=== PATIENT | male | born 1950 | race Caucasian/White ===

== ENCOUNTER 2017-02-01 16:59 | Emergency (ER) | payer OTHER, BC ==
[~2017-02-01] VITALS: Ht 185.4 cm; Wt 132.0 kg
[~2017-02-01 16:59] MED LIST: ASPI81TA28 PO; DICL-201 PO; DICL1GEL28 TOP; DOXY50CA26 PO; EPP3 IM; FLUO0.05 TOP; GABA600T PO; METR1GEL3 TOP; OXYC-106 PO; RANITAB33 PO; SIMV10TA5 PO
[2017-02-01 17:08] VITALS: TEMP 36.7; Ht 185.4 cm; Wt 132.0 kg
--- NOTE | 2017-02-01 17:56 | DIAGNOSTIC IMAGING REPORT ---
L HAND MIN 3 VIEWS ROUTINE CLINICAL HISTORY: Left hand injury. COMPARISON: None FINDINGS: Alignment of the left hand is anatomic. No acute fracture or radiopaque foreign bodies are identified. There may be mild soft tissue swelling of the left second digit. There is moderate osteoarthritis within multiple articulations of the left hand. IMPRESSION: No acute fracture or dislocation within the left hand. No radiopaque foreign bodies identified. Electronically signed by: Ton Garay M.D. 02/01/2017 5:55 PM Dictated Date/Time: 02/01/2017 5:53 PM
[2017-02-01] MEDS ORDERED: OXYC-57 PO (18:06)
[2017-02-01] MEDS ORDERED: CEPH500C2 PO (18:06)
[2017-02-01] MEDS ORDERED: ATOR-22 PO (18:16)
[2017-02-01] MEDS ORDERED: EPP3/2 IM (18:18)
[2017-02-01 18:30] VITALS: BP 146/88; PULSE 78; O2SAT 99
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
== END 2017-02-01 18:31 | disposition home or self-care (01) ==
LOC: C.EDB 17:01 → C.EDD 18:31
DX: S61.211A Laceration without foreign body of left index finger without damage to nail, initial encounter (principal); W32.1XXA Accidental handgun malfunction, initial encounter; Z79.52 Long term (current) use of systemic steroids; Z79.1 Long term (current) use of non-steroidal anti-inflammatories (NSAID); Z79.82 Long term (current) use of aspirin; F10.99 Alcohol use, unspecified with unspecified alcohol-induced disorder

== ENCOUNTER → 2017-02-08 | Outpatient (CLI) | payer OTHER, BC ==
[~2017-02-08] MED LIST changes: +CEPH500C2 PO; -DOXY50CA26 PO; -EPP3 IM; +EPP3/2 IM; -METR1GEL3 TOP; -OXYC-106 PO; +OXYC-57 PO; -RANITAB33 PO; -SIMV10TA5 PO
== END | disposition home or self-care (01) ==
LOC: C.RDSM 13:00
PROVIDERS: ATTEND Physical Medicine & Rehabilitation Sports Medicine
DX: M17.12 Unilateral primary osteoarthritis, left knee (principal)

== ENCOUNTER → 2017-04-14 | Outpatient (CLI) | payer OTHER, BC ==
[~2017-04-14] MED LIST changes: -CEPH500C2 PO
== END | disposition home or self-care (01) ==
LOC: C.CPL 14:59
PROVIDERS: ATTEND Orthopaedic Surgery
DX: Z01.818 Encounter for other preprocedural examination (principal); M79.642 Pain in left hand

== ENCOUNTER 2022-06-02 05:07 | Observation (INO) ==
--- NOTE | 2022-05-26 12:31 | Anesthesiology Consultation ---
Date of Service May 26, 2022 Assessment & Plan (1) Encounter for pre-operative examination: Chart Review Chart Review: Acceptable Risk for Surgery and Patient seen in Pre Admission Testing -COVID screening: Per PAT nursing assessment on 05/26/22. Pt tested Covid positive 05/05/22 preoperatively prior to TKA procedure. Pt's procedure was rescheduled to 06/02/22 (28 days from Covid positive test). No known COVID-19 positive contacts or current COVID-19 related symptoms. Travel screen negative. Patient vaccinated for Covid. Pt will NOT need re-tested for Covid (even if admitted) due to 90 day protocol - Outpatient joint assessment: Pt currently scheduled for inpatient pathway. If surgeon requests review for outpatient joint pathway, patient is an acceptable candidate for outpatient joint program from anesthesia standpoint. - PCP office visit (04/15/22): "Patient is at low risk For perioperative cardiac event and may undergo the proposed surgery under noninvasive cardiac monitoring .. Rash and nonspecific skin eruption.. 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 continue bexarotene 300 mg daily.. triamcinolone .1% cream BID prn flares on skin surface - tx axillary flare until improved. plans for knee surgery (TKA) in a couple of weeks.. Follow-up: 6 mo (sooner if changes or problems) " - Cardiology office visit (04/22/22): "Preoperative cardiology consultation. + ALCANTAR. Limited functional capacity. Atherosclerotic calcifications involving the aorta and coronary arteries via CT scan dated 04/27/2017. Multiple risk factors. Refer for risk stratification dobutamine stress echocardiography.. Dyslipidemia. LDL goal less than 100 mg/dL. Hypertriglyceridemia.. Patient with documented intolerance to simvastatin, atorvastatin, rosuvastatin, and ezetimibe.. On Bexarotene, which is known to induce significant lipid abnormalities in a majority of patients.. Continue PCSK9 Inhibitor therapy and OTC fish oils.. Cardiology follow-up with the above, routinely in 6 months, or as needed." Cardiology note (05/04/22): DSE reviewed > "no cardiac contraindication for upcoming orthopedic surgery." History Surgery Operation Date: 06/02/22 07:00 Proposed Procedures p Left Total Knee Arthroplasty - Kirk Chau MD Height/Weight Height: 6 ft Weight: 122.47 kg Allergies Allergy/AdvReac Type Severity Reaction Status Date / Time bee venom protein (honey bee) Allergy Severe anaphlaxis Verified 05/26/22 12:01 shellfish derived Allergy Intermediate Hives Verified 05/26/22 12:01 No Known Drug Allergies Allergy Unknown NONE Verified 05/26/22 12:01 Medications Home Medications Medication Instructions Recorded Confirmed Last Taken aspirin 81 mg tablet,delayed 81 mg PO QPM 02/24/19 05/26/22 05/03/22 release cholecalciferol (vitamin D3) 25 1,000 unit PO QAM 02/24/19 05/26/22 05/04/22 10:00 mcg (1,000 unit) chewable tablet (Vitamin D3) diclofenac sodium 75 mg 75 mg PO BID 02/24/19 05/26/22 04/26/22 tablet,delayed release gabapentin 600 mg tablet 600 mg PO BID 02/24/19 05/26/22 05/05/22 07:00 bexarotene 75 mg capsule 300 mg PO DAILY 04/21/22 05/26/22 05/04/22 10:00 (Targretin) citalopram 10 mg tablet (Celexa) 10 mg PO QAM 04/21/22 05/26/22 05/05/22 07:00 evolocumab 140 mg/mL subcutaneous 140 mg subcut MONTHLY 04/21/22 05/26/22 04/30/22 pen injector (Devi Jones) levothyroxine 100 mcg tablet 100 mcg PO QAM 04/21/22 05/26/22 05/05/22 06:45 lorazepam 1 mg tablet 1 mg PO HS 04/21/22 05/26/22 05/04/22 23:30 Probiotic 1 tab PO DAILY 04/24/22 05/26/22 05/01/22 Vitamin C 1 tab PO DAILY 04/24/22 05/26/22 05/04/22 09:30 acetaminophen 1 tab PO DIRECTED 04/24/22 05/26/22 05/04/22 09:00 epinephrine 0.3 mg/0.3 mL 0.3 mg IM Q4H PRN Allergic Reaction 04/24/22 05/26/22 Unknown injection, auto-injector (EpiPen) omega-3 fatty acids 1 cap PO DAILY 04/24/22 05/26/22 04/26/22 omeprazole 20 mg tablet,delayed 20 mg PO DAILY 04/24/22 05/26/22 05/05/22 07:00 release Past Medical History Medical History GERD (gastroesophageal reflux disease) History of COVID-19 05/05/22 (tested Covid positive preoperatively while at [facility] prior to TKA- TKA was rescheduled to 06/02/22) Hodgkin lymphoma Hyperlipidemia 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 No issues noted per post-op anesthesia progress note. History of left knee surgery x 2 History of lumbar laminectomy x2 History of lymph node biopsy groin 02/28/19 History of removal of cyst History of tonsillectomy History of wisdom tooth extraction Social History Smoking Status: Former smoker tobacco type: smokeless tobacco Do You Dip or Chew Tobacco: Yes (advised) Smoking End Date: quit 4.5 years ago Hx Alcohol Use: Yes Alcohol type: beer and wine alcohol intake frequency: a few times a month Hx Substance Use: No substance use type: does not use Lab Results Anesthesia Preop Results Results Anesthesia Widget: PT 10.9 Seconds (9.0-12.0) 04/24/22 PTT 27.9 Seconds (21.0-31.0) 04/24/22 INR 1.0 (0.9-1.1) 04/24/22 COVID-19 PCR POSITIVE (Negative) A* 05/05/22 SARS-CoV-2, RNA, NAAT POSITIVE (NEGATIVE) A* 05/05/22 Blood Type O Positive 04/24/22 Antibody Screen NEGATIVE 04/24/22 Testing Laboratory Results 04/16/22 WBC 6.25 H/H 15.8/48.5 PLATELETS 207 SODIUM 140 POTASSIUM 5.0 CHLORIDE 100 CO2 31 BUN 21 CREATININE 0.9 GLUCOSE 111 A1C 5.7 TSH 0.54 Electrocardiogram Date: 04/22/22 Normal sinus rhythm at 62 bpm. RAD. No significant change compared to 11/03/2021 per microfilm equipment inspector review. Chest X-Ray Date: 04/24/22 FINDINGS: PA and lateral chest radiographs are obtained. No prior studies are available for comparison at the time of dictation. The heart is mildly enlarged. The pulmonary vasculature is noncongested. The lungs and pleural spaces are clear noting mild bibasilar atelectasis. There is no pneumothorax. The skeletal structures are osteopenic. The bony thorax appears intact. Degenerative change is seen in the shoulders and spine. Cholecystectomy clips are noted in the upper abdomen. IMPRESSION: Mild cardiomegaly with no active disease in the chest. Echocardiogram Date: 05/10/20 LVEF 53%. No regional motion abnormality. No significant valvular disease. Stress Test Date: 05/04/22 Type: DSE Stress echo negative for inducible ischemia. No symptoms suggestive of angina. Rest echo: LVEF 55-59%, mildly increased cLV wall thickness, no significant valvular disease. Mildly enlarged proximal ascending thoracic aorta (3.8cm).
[2022-06-02] MEDS ORDERED: TRANEXAMIC ACID 1,000 MG **IV Intra-op IV SCH (06:00)
[2022-06-02] MEDS ORDERED: TRANEXAMIC ACID 1,000 MG **IV Pre-op IV SCH (06:00)
[2022-06-02] MEDS ORDERED: cloNIDine HCL 0.1 MG/24 HR TRANSDERM SYS TD SCH (06:00)
[2022-06-02] MEDS ORDERED: METOCLOPRAMIDE HCL 10 MG TABLET PO SCH (06:00)
[2022-06-02] MEDS ORDERED: LR 500ML BOLUS, THEN 15ML/HR IV SCH (06:00)
[2022-06-02] MEDS ORDERED: traMADol HCL 50 MG TABLET PO SCH (06:00)
[2022-06-02] MEDS ORDERED: oxyCODONE HCL 10 MG TABCR (OxyCONTIN) PO SCH (06:00)
[2022-06-02] MEDS ORDERED: ROPIVACAINE 0.5% HCL/PF 150 MG, BUPIVACAINE 0.75% MPF 20 ML, EPINEPHrine 0.15 MG, Ketor... INFIL SCH (06:00)
[2022-06-02] MEDS ORDERED: dexAMETHasone 4 MG TAB PO SCH (06:00)
[2022-06-02] MEDS ORDERED: CeleBREX 200 MG CAP PO SCH (06:00)
[2022-06-02] MEDS ORDERED: ACETAMINOPHEN 500 MG TAB PO SCH (06:00)
[2022-06-02] MEDS ORDERED: FAMOTIDINE 20 MG TAB PO SCH (06:00)
[2022-06-02] MEDS ORDERED: LR 60ML/HR IV SCH (06:00)
[2022-06-02] MEDS ORDERED: BUPIVACAINE 0.5 % 5 MG/1 ML PF 10ML VIAL ONE (06:18)
[2022-06-02] MEDS ORDERED: ROPIVACAINE 0.5% 5 MG/ML 30 ML VIAL ONE (06:19)
[2022-06-02] MEDS ORDERED: ORTHO JOINT ANESTHETIC ONE (06:41)
[2022-06-02] MEDS ORDERED: MIDAZOLAM HCL 1 MG/ML 2ML VIAL ONE ×2 (06:44→09:11)
[2022-06-02] MEDS ORDERED: fentaNYL citrate PF 100 MCG/2 ML VIAL ONE (06:44)
--- NOTE | 2022-06-02 06:54 | History & Physical Bridge Note ---
Date of Service June 02, 2022 History & Physical Bridge Note I have examined the patient, reviewed the History & Physical and in the interval since the performance of the History & Physical I have noted the following changes of clinical significance: no changes noted dried skin top of left foot and popliteal fossa, slightly irritated from CHG wipe.
[2022-06-02] MEDS ORDERED: PROPOFOL IV EMULSION 10 MG/ML 20 ML VIAL IV ONE ×6 (07:25→10:24)
[2022-06-02] MEDS ORDERED: PHENYLEPHRINE HCL 10 MG/ML VIAL ONE (07:40)
[2022-06-02] MEDS ORDERED: ePHEDrine sulfate 50 MG/ML AMP ONE (07:40)
[2022-06-02] MEDS ORDERED: HYDROmorphone INJ 2 MG/ML SYR/VIAL IV PRN (08:11)
[2022-06-02] MEDS ORDERED: ePHEDrine sulfate 50 MG/ML AMP IV PRN (08:11)
[2022-06-02] MEDS ORDERED: ATROPINE SULFATE 0.1 MG/ML 10ML SYR IV PRN (08:11)
[2022-06-02] MEDS ORDERED: ONDANSETRON INJ 2 MG/ML 2 ML VIAL IV PRN (08:11)
[2022-06-02] MEDS ORDERED: PROMETHAZINE HCL 12.5 MG in SODIUM CHLORIDE 0.9% 50 ML IV PRN (08:11)
[2022-06-02] MEDS ORDERED: KETAMINE 50 MG/5 ML SYRINGE ONE (08:31)
[2022-06-02] MEDS ORDERED: ONDANSETRON INJ 2 MG/ML 2 ML VIAL ONE (08:32)
--- NOTE | 2022-06-02 11:39 | Operative Report ---
Post Operative Report Pre & Post Diagnosis Operation Date: 06/02/22 07:00 <No data on this case meets the specified criteria> Left knee arthritis I identified the patient and participated in the time-out.: Yes Procedure Operation Date: 06/02/22 07:00 <No data on this case meets the specified criteria> Left total knee arthroplasty Surgeon Kirk Chau MD Business Information Consultant Karen Brewer no resident or fellow available Estimated Blood Loss 50 Findings Consistent with Post-Op Diagnosis Specimens Resected bone and soft tissue Drains Hemovac x1 in the subcutaneous tissue Anesthesia Type General Regional Complications none Disposition Accompanied Patient To Recovery: No Disposition: Recovery Room Indications Patient is 71 years old. He has a severe posttraumatic osteoarthritis of his left knee. He has had multiple previous surgical procedures. He has a severe varus deformity with multiple loose bodies and bone loss on the tibia. He has undergone extensive nonsurgical treatment and wishes to have operative intervention. Description of Procedure Informed consent obtained. Patient identified. He identified the operative site as the left knee. Before surgery was made aware of skin irritation on the back of the leg. It looks like he has an area of dried skin about 6 or 8 cm wide and about 15 to 20 cm long extending from the popliteal fossa up onto the back of the calf. There is no break in the skin or bleeding and there is nothing to suggest infection. The patient states that he would not of noticed it except that he had some burning back there when he did the chlorhexidine wipe before surgery. This looks like some minorly irritated and dried skin. He has similar findings on the contralateral leg. He also has some dried skin on the top of his feet. Again nothing infectious or cracked or bleeding. Surgical timeout performed. Preop dose of antibiotics given. He received TXA also. He was taken to the OR positioned supine on the operating room table. The anesthetic was administered. A bump was placed under the left hip and under the left calf. A tourniquet was applied to the left thigh and the leg was prepped and draped in usual sterile fashion. DVT prophylaxis intraoperatively with mechanical devices and postop early mobility mechanical devices and Lovenox beginning approximately 12 hours postoperatively. The exam under anesthesia revealed range of motion 0/5/100. He had a fixed varus deformity moderate in nature and 1+ LCL laxity. There was a loose body within the popliteal cyst which could be palpated posteromedially. Limb exsanguinated with the Esmarch and tourniquet inflated 275 mmHg. He had 2 previous medial incisions. 1 was posteromedial and the other 1 was mid medial. This mid medial incision was about 12 cm in length. To stay 7 cm lateral to this at its distal extent where it nearly came back to the midline would mean a very far lateral incision. I elected to proceed with using the most lateral of the medial incisions and extending it in a curvilinear fashion back to the midline proximally and distally. This was done. Full-thickness flap was elevated laterally over to the lateral border of the patella. The medial border of the patellar tendon was identified. Extensive scarring was noted medially because of prior surgery. A medial parapatellar arthrotomy was then performed. The synovial reflection in the lateral gutter was released and the soft tissue on the anterior aspect of the distal femur was resected. There was white chalky material noted throughout the knee consistent with chondrocalcinosis. This was debrided. Synovectomy performed as there was a substantial amount of inflamed synovium. Multiple loose bodies were noted particularly in the anterior dao rtment of the knee. The retropatellar fat pad was resected and an extensile medial release was performed. There was extensive scarring medially and it looks like he had had a prior MCL injury and repair. Marginal osteophytes were removed. I then was able to shari the patella and flex the knee to about 90 degrees. Severe marginal osteophytes were noted medially with severe medial wear on the tibia and bone loss. Large [place] marginal osteophytes removed medially and laterally particularly under the collateral ligaments. There was ossification of the lateral collateral ligament and some small ossicles were removed but the majority of this was left intact as I did not want to compromise the integrity of the MCL. The osteophytes had completely obliterated the intercondylar notch. This required an osteotome to remove them and reestablish a normal-appearing intercondylar notch. The tibial spines were also deficient. Both menisci were deficient. Chondrocalcinosis was noted throughout. Remnants of the medial lateral menisci were removed. The ACL was completely absent. The PCL appeared to be smaller in size than normal and may have been partially chronically torn as well. Some fibers were present. The remnants of the cruciate ligaments were resected. The knee was then carefully subluxated by everting the tibia and using a blunt Hohmann retractor. This revealed a large posterior osteophyte on the tibia which was removed. Further remnants of the menisci were identified and removed at this point and the lateral border of the tibial plateau was identified. Further loose bodies incorporated within the soft tissue were excised there as well. Care was taken to identify and protect the patellar tendon. Based upon preoperative templating the intramedullary alignment jodie was inserted just in front of and slightly lateral to the large medial tibial spine. This put the jodie directly down the center of the tibia. The intramedullary alignment jodie was inserted. The 2 degree revision mobile-bearing tibial cutting jig was applied and pinned into place. This was set to resect 10 mm off of the lateral side corresponding to a deficient cut medially of about 1/2 cm. The guide was pinned in the place and the alignment was checked for slope. It bisected the ankle joint and intersected the second ray. This cut was then made and the tibia was sized to 5. Perhaps a 4 which show was a bit uncovered. Drilled a relief pilot hole in the distal femur just above the PCL remnant. The intramedullary alignment guide was inserted and the guide was pinned into place. A 12 mm thick distal cut set to 6 degrees left knee valgus. This was pinned into place and the cut was made. The extension gap fit for a 10 but was slightly lax on the lateral side. I then hian out the epicondylar axis and applied the distal femoral sizing guide. It was in between a 5 and a 6. I measured for a 6 pinned it and then used a 5 block to half size. I confirmed that it did not notch the femur anteriorly. The block was then pinned into place and the cuts were made. Extraneous osteophytes under the collateral ligaments were removed. There were large osteophytes noted in the back of the knee which were removed medially and laterally. There were also large ossicles present medially and laterally which were removed as well. There was one very large ossicle in his popliteal cyst wh ich I was able to remove. This was perhaps 3 cm in diameter. There were several other smaller ossicles which which were incorporated into the soft tissue and within the popliteal cyst which I could not readily accessible remove. The main one was removed. The flexion gap was a 12.5 which also accommodated in extension. The box cutting guide was applied lateralized pinned into place and the box cut was made. The trial femur was applied. Size 5. Attention was turned to the tibia. The size 55 tibial tray was lateralized as much as possible and aligned with the tibial tubercle and pinned into place. This resulted in about a 1 cm medial to lateral width and a length from anterior to posterior of about 15 mm and a depth of about 5 mm of tibial defect. Given the small size I elected to proceed with the stem and filled with cement. The uncapped medial bone was marked and then later excised with an oscillating saw removing osteophytes posteriorly. I then prepared the stem with the reamer and the keel with the punch. The mobile-bearing tray was then applied aligned and the trial component was inserted for a 12.5. Drill holes were made into the eburnated bone medially femur and tibia as encountered for cement incorporation. The knee was fully extended and had trace LCL laxity in extension and 1+ MCL laxity and trace LCL laxity in mid position and trace MCL and LCL laxity at 90 degrees. I therefore my final assessment elected to go with a 15 mm thick poly which worked very well. The patella was measured to be 27 mm in thickness. The guide was set to preserve 16 mm of bone. The cut was made and the 41 mm oval dome patella was selected medialized and distal lysed. Aligned with the trochlea and the lug holes were drilled. Patella tracking was off with the Endo hands technique however once the tourniquet was now patella tracking was fine with the final component in place. At this point would let the tourniquet down as it is been up for about 125 minutes of inflation. The knee was irrigated and the soft tissue were kept moist throughout the surgical procedure. Meticulous hemostasis was achieved. In particular the lateral geniculate was bleeding and there was a small pumper in the back of the knee within the fat pad which was also coagulated. The canals were plugged at this time. The Ortho joint mix was injected into the back of the knee. After the tourniquet of been down for 20 minutes the limb was reexsanguinated with a spacer block in between. Copious irrigation was performed and the bony surfaces were meticulously prepared and dried. I then went ahead and mixed 2 bags of Simplex P cement. While in a doughy state the femur was sent cemented in the place. The tibia was then cemented with cement under the posteromedial defect. The stem was cemented in place on its upper two thirds with doughy cement placed around the upper stem two thirds and into the upper tibia. The tibia was completely seated and appropriately aligned. The spacer was inserted and the knee was held in full extension. The patella was then cemented into place. The remainder the Ortho joint mix was injected and irrigation was performed while the cement was hardening. Once the cemented hardened the back the knee was inspected for cement and removed as encountered. Also around the tibial tray. There was good cement incorporation around the posterior medial tibial defect without any undermining. I then trialed again and found that the 15 gave full extension trace MCL laxity in mid position trace LCL laxity in mid position and no laxity in full extension or 90 degrees flexion. Full extension with neutral alignment. The final polyethylene was inserted. Patellar thickness was 27 mm. Patella tracked fine with no hands technique. [place] assisted flexion with extensor mechanism closed was 110 degrees. The arthrotomy was closed with interrupted #2 FiberWire's above the midportion of the patella and interrupted #1 Vicryl's below. Due to the correction there was sufficient soft tissue medially which could not be repaired. The skin was then closed with 0 and 2-0 Vicryl's matching of the patient's tattoo and inserting a drain within the subcutaneous tissue due to the large flap. [place] were utilized on the skin. This was followed by Xeroform 4 x 4's ABD soft wrap Paul wrap and a knee immobilizer. Skin cream was applied to the dried skin on the back of the knee and foot. Patient was wake from anesthesia without difficulty taken recovery in stable condition. Resected bone and soft tissue were sent for specimen. There were no complications. Counts were correct and blood loss is estimated to be 50 cc. At the conclusion the operation spoke to patient's daughter informed her of my findings postop instructions were given. He can be rehabilitated according to the standard total knee protocol. His Lovenox will begin the morning after surgery. The components inserted with a J[employer] PFC Sigma rotating platform knee. A size 5 x 15 mm thick polyethylene insert. A 41 mm 3 peg oval dome patella. A size 5 left posterior stabilized femur and a size 5 mobile-bearing keeled tibial tray with a 3 cm cemented extension. I attest to the content of the Intraoperative Record and any orders documented therein. Any exceptions are noted below.
--- NOTE | 2022-06-02 12:13 | Operative Report ---
Post Operative Report Pre & Post Diagnosis Operation Date: 06/02/22 07:00 Pre-Op Diagnosis: Left Knee Osteoarthritis Post-Op Diagnosis: Left Knee Osteoarthritis I identified the patient and participated in the time-out.: Yes Procedure Operation Date: 06/02/22 07:00 Actual Procedures p Left Total Knee Arthroplasty(Left) - Kirk Chau MD Surgeon Kirk Chau M.D. Rubber Tubing Splicer Karen Brewer PA-C; no fellow or resident available. Estimated Blood Loss 50 Findings Consistent with Post-Op Diagnosis Specimens Bone and soft tissue Anesthesia Type MAC Spinal Regional Description of Procedure Patient was taken to the operating room, placed under spinal anesthesia. Time out performed, given 2gm IV Ancef for surgical prophylaxis. He was prepped and draped in routine sterile fashion. I was present during the entire case, please see Dr. Chau's operative report for further detail. Patient was awakened and taken to the recovery room in stable condition. I attest to the content of the Intraoperative Record and any orders documented therein. Any exceptions are noted below.
[2022-06-02] MEDS: fentaNYL citrate PF 100 MCG/2 ML VIAL IV PRN ×3 (12:24→12:34)
--- NOTE | 2022-06-02 13:02 | Anesthesiology Progress Note ---
Date of Service June 02, 2022 Anesthesia Post Procedure Vital Signs Vital Signs: Temp Pulse Resp BP BP Pulse Ox O2 Del Method 06/02/22 12:55 36.4 C L 77 14 120/70 94 Nasal Cannula 06/02/22 12:45 65 12 140/80 95 Nasal Cannula 06/02/22 12:35 36.3 C L 74 16 134/90 91 Room Air 06/02/22 12:25 80 17 120/69 95 Oxymask 06/02/22 12:15 82 13 122/71 94 Oxymask 06/02/22 12:05 88 18 100/68 95 Oxymask 06/02/22 11:58 36.4 C L 90 14 116/66 97 Oxymask 06/02/22 05:33 36.9 C 70 20 146/72 H 97 Room Air O2 Flow Rate 06/02/22 12:55 2 06/02/22 12:45 2 06/02/22 12:35 06/02/22 12:25 4 06/02/22 12:15 4 06/02/22 12:05 6 06/02/22 11:58 10 06/02/22 05:33 Pain Intensity Left Knee: Pain Intensity: 3 Left Shoulder: Pain Intensity: 2 Transfer of Care Handoff Completed per policy Notes Mental Status: alert / awake / arousable and participated in evaluation Nausea / Vomiting: adequately controlled Pain: adequately controlled Airway Patency, RR, SpO2: stable & adequate BP & HR: stable & adequate Hydration State: stable & adequate Neuraxial Anesthesia: was administered and sensory block is resolving Anesthetic Complications: no major complications apparent and Pt Satisfied with anesthetic care
[2022-06-02] MEDS ORDERED: hydrALAZINE HCL 20 MG/ML VIAL IV PRN (13:53)
[2022-06-02] MEDS ORDERED: MAGNESIUM HYDROXIDE SUSP 30 ML UDC PO PRN (13:53)
[2022-06-02] MEDS ORDERED: NALOXONE HCL 0.4 MG/1 ML VIAL/CARP IV PRN (13:53)
[2022-06-02] MEDS ORDERED: TAMSULOSIN HCL 0.4 MG CAP PO PRN (13:53)
[2022-06-02] MEDS ORDERED: traMADol HCL 50 MG TABLET PO PRN (13:53)
[2022-06-02] MEDS ORDERED: bisacodyL 10 MG SUPP PR PRN (13:53)
[2022-06-02] MEDS ORDERED: HYDROmorphone INJ 0.5 MG/0.5 ML SYR IV PRN (13:53)
--- NOTE | 2022-06-02 14:03 | XRay Report ---
TWO VIEWS LEFT KNEE CLINICAL HISTORY: Postoperative examination. FINDINGS: AP and crosstable lateral portable views of the left knee are obtained. A left knee arthrop lasty is in near anatomic alignment. There has been undersurface remodeling of the patella. No acute fracture is seen. There are expected postoperative changes around the knee including skin clips, a paul rgical drain, soft tissue edema, and subcutaneous gas. IMPRESSION: Expected postoperative changes status post left knee arthroplasty. No acute fracture is s een. ACT 112: Negative or not required by law. Electronically signed by: Jameson Palacios M.D. 06/02/2022 2:01 PM
--- NOTE | 2022-06-02 16:18 | Progress Notes ---
DATE OF SERVICE: 06/02/2022. SUBJECTIVE: Resting comfortably in bed. No problems are reported. Afebrile, vital signs stable. D rain output 65. Sensation intact in the foot. DP and PT pulses are 1+. He has 5/[address] dwaine flexion, dorsiflexion and eversion. Dressing clean and dry. Surgical findings are discussed. We went over some simple exercises. We talked about not lying with the leg rotated externally. X-r ays are reviewed. Good positioning of the components. No evidence of complication. No fracture. PLAN: Routine postoperative total knee rehab. [facility] beginning in the morning. Pain control, elev ation. Job ID: [id number]
[2022-06-02] MEDS: ACETAMINOPHEN 500 MG TAB PO SCH ×2 (17:14→21:13)
[2022-06-02] MEDS: KETOROLAC TROMETHAMINE 15 MG/ML VIAL IV SCH ×2 (17:15→21:09)
[2022-06-02] MEDS: CHECK CLONIDINE PATCH PLACEMENT SCH ×2 (17:22→19:15)
[2022-06-02] MEDS: SODIUM CHLORIDE 0.9% 1000ML 1,000 ML IV SCH (17:32)
[2022-06-02] MEDS: ceFAZolin 2000MG 2,000 MG/15 ML SYR IV SCH (19:20)
[2022-06-02] MEDS: LORazepam 1 MG TAB PO SCH (21:10)
[2022-06-02] MEDS: DOCUSATE SODIUM 100 MG CAP PO SCH (21:11)
[2022-06-02] MEDS: SENNA 8.6 MG TAB PO SCH (21:11)
[2022-06-02] MEDS: GABAPENTIN 600 MG TAB PO SCH (21:12)
[2022-06-02] MEDS: CeleBREX 200 MG CAP PO SCH (21:13)
[2022-06-02] MEDS: ASPIRIN 81 MG ECTAB PO SCH (21:53)
[2022-06-03] MEDS: CHECK CLONIDINE PATCH PLACEMENT SCH ×3 (00:49→16:24)
[2022-06-03] MEDS: oxyCODONE HCL IR 5 MG TAB (IMMEDIATE RELEASE) PO PRN ×2 (01:54→08:55)
[2022-06-03] MEDS: ceFAZolin 2000MG 2,000 MG/15 ML SYR IV SCH (01:55)
[2022-06-03] MEDS: KETOROLAC TROMETHAMINE 15 MG/ML VIAL IV SCH ×2 (01:55→08:07)
[2022-06-03] MEDS: SODIUM CHLORIDE 0.9% 1000ML 1,000 ML IV SCH (02:05)
[2022-06-03] MEDS: ACETAMINOPHEN 500 MG TAB PO SCH ×3 (06:17→22:47)
[2022-06-03] MEDS: LEVOTHYROXINE SODIUM 100 MCG TABLET PO SCH (06:17)
[2022-06-03 07:49] LABS: Hematocrit (blood only) 29.5 % (42.0-52.0); Hemoglobin 9.8 g/dl (14.0-18.0); Mean Corpuscular Hemoglobin 29.8 pg (25.0-34.0); Mean Corpuscular Hgb Conc 33.2 g/dL (32.0-36.0); Mean Corpuscular Volume 89.7 fL (80.0-100.0); Mean Platelet Volume 10.7 fL (9.4-12.4); Platelet Count 177 K/uL (130-400); RDW Coefficient of Variation 12.7 % (11.5-14.5); RDW Standard Deviation 42.1 fL (36.4-46.3); Red Blood Count 3.29 M/uL (4.70-6.10); White Blood Count 12.73 K/ul (4.8-10.8)
[2022-06-03] MEDS ORDERED: dexAMETHasone 4 MG TAB PO SCH (08:00)
[2022-06-03] MEDS: ENOXAPARIN INJ 30 MG/0.3 ML SYR SQ SCH (08:08)
[2022-06-03] MEDS: CeleBREX 200 MG CAP PO SCH ×2 (08:10→20:04)
[2022-06-03] MEDS: ASCORBIC ACID 500 MG TAB PO SCH (08:10)
[2022-06-03] MEDS: CITALOPRAM 20 MG TAB PO SCH (08:11)
[2022-06-03] MEDS: DOCUSATE SODIUM 100 MG CAP PO SCH ×2 (08:13→20:04)
[2022-06-03] MEDS: OMEGA-3 (PURIFIED FISH OIL) 1 GM CAP PO SCH (08:13)
[2022-06-03] MEDS: PANTOprazole 40 MG TAB PO SCH (08:14)
[2022-06-03] MEDS: ADVANCED PROBIOTIC 1250 MG CAPSULE PO SCH (08:14)
[2022-06-03] MEDS: MULTIVITAMIN TAB PO SCH (08:14)
[2022-06-03] MEDS: GABAPENTIN 600 MG TAB PO SCH ×2 (08:14→20:04)
[2022-06-03 08:19] LABS: BUN Creatinine Ratio 27.4 (10-20); Calcium 8.3 mg/dl (8.5-10.1); Creatinine Clr Calc Pharmacy 99.1 ml/min; Est GFR (African American) 93.6 ml/min; Est GFR (Non-African American) 80.8 ml/min; Potassium 4.6 mmol/L (3.5-5.1)
--- NOTE | 2022-06-03 10:47 | Orthopedic Progress Note ---
Date of Service June 03, 2022 Assessment & Plan (1) Status post total left knee replacement: Plan: Postop day 1-status post left TKA by Dr. Chau. Regular diet as ordered. Home medications have been continued. He did start his Lovenox this morning. We will have him on 30 mg twice daily for 2 to 4 weeks after surgery. He is comfortable giving this to himself. PT and OT to start today. He may weight-bear as tolerated with walker assistance and a knee immobilizer on his left leg when out of bed. Bedside exercises as taught to him by the therapist and instructed by nursing. Continue pain medicationAs needed. SIDDHARTH stockings and AV impulse boots for DVT prophylaxis. Patient wishes to stay another day for pain management and further physical therapy and Occupational Therapy. We will to continue the Hemovac for now. Findings discussed with Dr. Chau. All questions were answered. We will reassess later today or tomorrow morning. Admission and Anticipated Discharge Date Admission Date: June 02, 2022 Subjective Patient is resting in bed. Eating breakfast. Doing well. No complaints of significant pain in his left knee. He does have pain when he tries to move the knee with regards to bending straightening or standing on it. He did sit up at the side of the bed last night did have a few minutes of nausea but no vomiting. He states he has not had that since. He does have significant pain with any type of weightbearing. Denies any chest pains or shortness of breath. Denies any numbness or tingling in his left leg except for his normal neuropathy.. Physical Exam Musculoskeletal: Exam of his left knee: His postoperative dressings are clean, dry and intact. The Hemovac is in place and functioning. Full strength of his left ankle with dorsiflexion, plantarflexion, inversion and eversion. Sensation is normal throughout his left foot. Dorsalis pedis and posterior tibial pulses are 1+. His knee is held in the extended position. He is unable to independently lift it off the bed today due to pain. We are able to do this with assistance. Tolerates logrolling of his left hip. Results & Data Vital Signs (Past 12 Hours) Vital Signs Temp Pulse Resp BP Pulse Ox O2 Del Method 06/03/22 07:39 36.7 C 64 18 96/54 L 96 Room Air 06/03/22 04:21 36.5 C 80 18 114/56 L 96 Room Air 06/02/22 23:48 36.5 C 76 18 129/68 95 Room Air Laboratory Results 06/03/22 06/03/22 Range/Units 07:05 07:05 WBC 12.73 H (4.8-10.8) K/ul RBC 3.29 L (4.70-6.10) M/uL Hgb 9.8 L (14.0-18.0) g/dl Hct 29.5 L (42.0-52.0) % MCV 89.7 (80.0-100.0) fL MCH 29.8 (25.0-34.0) pg MCHC 33.2 (32.0-36.0) g/dL RDW Std Deviation 42.1 (36.4-46.3) fL RDW Coeff of Kasey 12.7 (11.5-14.5) % Plt Count 177 (130-400) K/uL MPV 10.7 (9.4-12.4) fL Sodium 137 (136-145) mmol/L Potassium 4.6 (3.5-5.1) mmol/L Chloride 103 (98-107) mmol/L Carbon Dioxide 30 (21-32) mmol/L Anion Gap 4 (3-11) BUN 26 H (6-23) mg/dl Creatinine 0.95 (0.6-1.4) mg/dl Est Cr Clr Drug Dosing 99.1 ml/min Est GFR ( Amer) 93.6 ml/min Est GFR (Non-Af Amer) 80.8 ml/min BUN/Creatinine Ratio 27.4 H (10-20) Glucose 131 H (70-99(Fasting)) mg/dl Calcium 8.3 L (8.5-10.1) mg/dl Hemovac drainage is 560 mL since surgery. We will plan to leave in today. May remove this afternoon.
[2022-06-03] MEDS ORDERED: SODIUM CHLORIDE 0.9% IV ONE (18:30)
[2022-06-03] MEDS ORDERED: TRANEXAMIC ACID IV ONE ×2 (18:30)
[2022-06-03] MEDS ORDERED: SODIUM CHLORIDE IV ONE (18:30)
--- NOTE | 2022-06-03 18:30 | Progress Notes ---
DATE OF SERVICE: 06/03/2022. Doing well. Pain well controlled. He has been able to do reasonably well with physical therapy. He has been up and about several times today. He has not been lightheaded or dizzy. Vital signs are stable. O2 sat 97, pulse 81, BP 120/64. He has had an elevated drain output. He collazo d approximately 250 this past shift and 175 overnight. White count is 13, hemoglobin 10, hematocrit 30, platelets are 177. PRP is noted. His distal neurovascular function is intact. 5/5 ankle and toe plantarflexion and dorsiflexion stren gth, 1+ PT pulse. Dressing is clean and dry without any significant swelling. There is a little bit of drainage in the drain at this point. Continue rehab. Continue admission. We will recheck in the morning. We will hold the Lovenox and a spirin and give another dose of TXA. The drain is in the subcutaneous tissue. The arthrotomy could not be completely closed due to deformity correction. There was a large space in the subcutaneo us tissue. There may be some contribution from intra-articular bleeding and lack of surgical tampona de. Otherwise, he is doing well and his pain is well managed. He will continue PT. Recheck CBC in the [facility]. Mechanical devices for DVT prophylaxis. Job ID: [id number]
[2022-06-03] MEDS: LORazepam 1 MG TAB PO SCH (20:03)
[2022-06-03] MEDS: SENNA 8.6 MG TAB PO SCH (20:05)
[2022-06-03] MEDS ORDERED: TRANEXAMIC ACID / 0.7% NACL 1,000 MG/100 ML BAG IV ONE (23:50)
[2022-06-04] MEDS: CHECK CLONIDINE PATCH PLACEMENT SCH ×2 (00:01→09:51)
[2022-06-04] MEDS: ACETAMINOPHEN 500 MG TAB PO SCH (06:31)
[2022-06-04] MEDS: LEVOTHYROXINE SODIUM 100 MCG TABLET PO SCH (06:32)
--- NOTE | 2022-06-04 06:47 | Progress Notes ---
DATE OF SERVICE: 06/04/2022. SUBJECTIVE: Resting comfortably in bed. Had a good night's sleep. Pain is 2/10. OBJECTIVE: Afebrile, vital signs are stable. Drainage had 50 mL out between 3:00 p.m. on 06/03/2022 and 10:00 p.m. There is 50 mL today at 6:00 a.m. Strength 5/5 to ankle and toe plantarflexion and dorsiflexion. He has 2+ DP and PT pulses. Dressing is changed. Incision is benign. No significant drainage and no hematoma formation. No significant fluid under the flap or in the knee joint. Redressed. A.m. labs are pending. IMPRESSION: Left total knee arthroplasty. PLAN: He is doing very well. The drainage has subsided. New compressive wrap is applied. We will see how he does with PT today, check his a.m. labs, and pain control. If well, then we could conside r discharge home today. He will have home health services. He will follow up with me in 2 weeks. Felisa lagos talked about elevation, icing, therapy, and rest. Bathing instructions were given. He will be on his regular meds, stool softener, pain meds, and the Lovenox. Blood draws will be done. If there are any problems with pain, fever, swelling, or drainage, he is to let me know. He is able to do a stra ight leg raise today. He can discontinue the knee immobilizer and wear as needed. Always walk with a walker. Job ID: [id number]
[2022-06-04 08:11] LABS: Basophils # (auto) 0.01 K/uL (0-0.2); Basophils % (auto) 0.1 %; Hematocrit (blood only) 27.1 % (42.0-52.0); Hemoglobin 8.9 g/dl (14.0-18.0); Immature Granulocytes # (auto) 0.06 K/uL (0.01-0.20); Immature Granulocytes % (auto) 0.7 %; Lymphocytes # (auto) 1.26 K/uL (1.2-3.4); Lymphocytes % (auto) 14.5 %; Mean Corpuscular Hgb Conc 32.8 g/dL (32.0-36.0); Mean Corpuscular Volume 91.2 fL (80.0-100.0); Mean Platelet Volume 10.7 fL (9.4-12.4); Monocytes # (auto) 0.98 K/uL (0.11-0.59); Monocytes % (auto) 11.3 %; Neutrophils # (auto) 6.39 K/uL (1.40-6.50); Neutrophils % (auto) 73.4 %; Platelet Count 158 K/uL (130-400); Red Blood Count 2.97 M/uL (4.70-6.10)
[2022-06-04 08:19] VITALS: BP 112/56; PULSE 84; TEMP 97.7; O2SAT 98
--- NOTE | 2022-06-04 09:01 | Orthopedic Progress Note ---
Date of Service June 04, 2022 Assessment & Plan (1) Status post total left knee replacement: Plan: The patient was educated regarding today's findings. Conservative care measures were discussed. His prescriptions have already been sent to his pharmacy. He feels ready for discharge. Discharge order was placed, and he will leave after participating in PT/OT this morning. He states his ride will be here at 10:30 AM. Continue ice, elevation, and use of his compression stocking. His H&H will be rechecked on Wednesday. He did inquire about bathing. He should keep the knee dry today and tomorrow. He may get in the shower on Wednesday. Avoid scrubbing. Avoid soaking. Continue using his walker for ambulation. Call the office with any other concerns. Admission and Anticipated Discharge Date Admission Date: June 02, 2022 Subjective This 71-year-old male is seen today in his room. He denies any discomfort at this point. He feels ready for discharge to home. He states Dr. Chau was in early this morning and pulled his drain and changed his dressing. He has no other complaints at this time. Denies any chest pain, shortness of breath, nausea, vomiting, or abdominal pain. He denies any lightheadedness or dizziness. Review of Systems Review of Systems: Unchanged from admission Physical Exam Physical Exam: General: Well-developed, well-nourished, elderly male, in no acute distress. Laying in bed. Alert and oriented. Conversive. Skin: Warm and dry with good turgor. No rashes. Patient has an intact postsurgical dressing on the left knee. Dressing is dry and there is no strikethrough. No appreciable edema in his left leg. Musculoskeletal: Patient has intact motor function of the left hip, knee, and ankle. He is able to perform a straight leg raise. Neurologic: Gross sensation is intact across both lower extremities by soft touch. Results & Data Vital Signs (Past 12 Hours) Vital Signs Temp Pulse Resp BP Pulse Ox O2 Del Method 06/04/22 08:17 36.5 C 84 18 112/56 L 98 Room Air Laboratory Results CBC obtained today shows a white count of 8.7. Hemoglobin 8.9 and hematocrit 27.1. Platelets 158,000.
[2022-06-04] MEDS: oxyCODONE HCL IR 5 MG TAB (IMMEDIATE RELEASE) PO PRN ×2 (09:11→12:54)
[2022-06-04] MEDS: PANTOprazole 40 MG TAB PO SCH (09:12)
[2022-06-04] MEDS: CITALOPRAM 20 MG TAB PO SCH (09:12)
[2022-06-04] MEDS: ENOXAPARIN INJ 30 MG/0.3 ML SYR SQ SCH (09:12)
[2022-06-04] MEDS: OMEGA-3 (PURIFIED FISH OIL) 1 GM CAP PO SCH (09:12)
[2022-06-04] MEDS: ASPIRIN 81 MG ECTAB PO SCH (09:13)
[2022-06-04] MEDS: ADVANCED PROBIOTIC 1250 MG CAPSULE PO SCH (09:13)
[2022-06-04] MEDS: CeleBREX 200 MG CAP PO SCH (09:14)
[2022-06-04] MEDS: MULTIVITAMIN TAB PO SCH (09:14)
[2022-06-04] MEDS: DOCUSATE SODIUM 100 MG CAP PO SCH (09:14)
[2022-06-04] MEDS: GABAPENTIN 600 MG TAB PO SCH (09:14)
[2022-06-04] MEDS: ASCORBIC ACID 500 MG TAB PO SCH (09:14)
--- NOTE | 2022-06-04 12:48 | Discharge Summary ---
Date of Service June 04, 2022 Discharge Data Procedures Performed Operation Date: 06/02/22 07:00 Actual Procedures p Left Total Knee Arthroplasty(Left) - Kirk Chau MD Hospital Course (1) Status post total left knee replacement: Patient was admitted to [facility] after undergoing an elective left total knee arthroplasty on June 02, 2022. His surgery was performed with spinal anesthesia peripheral nerve block. He was given 3 g of IV Ancef preoperatively which was continued for 24 hours after surgery. He tolerated his procedure well without any intraoperative complications. Postoperative x-rays of his left knee were obtained in the recovery room and showed a stable left knee prosthesis. He was allowed out of bed, weight-bear as tolerated on his left lower extremity with the assistance of a walker and knee immobilizer. Hemovac was placed intraoperatively to decompress his knee. He had approximately 1000 mL of blood removed with a Hemovac. His Hemovac was removed on postoperative day 2. He tolerated regular diet during his inpatient stay. His hemoglobin and hematocrit remained stable during his inpatient stay although he did develop acute blood loss anemia but remained asymptomatic. No blood transfusions were necessary. He was given Oxycodone, tramadol, Toradol, IV Dilaudid, oral Tylenol for postoperative pain control. His pain was well controlled on oral medications. He was started on Lovenox 30 mg twice daily on postoperative day 1. Due to the bleeding in his Hemovac his Lovenox was held on postop day 1 and resumed on postop day 2. He was also given an additional dose of 1800 mg of TXA. He also had 1 preop dose of TXA and 1 Intra-Op dose of TXA as well. He was also given SIDDHARTH stockings and AV impulse boots for DVT prophylax is. His home medications were continued. No medical consultation was required during his inpatient stay. He did not develop any postoperative nausea or vomiting. He was seen and evaluated by physical therapy and Occupational Therapy and did well out of bed ambulating 300+ feet with a walker. He was deemed safe for discharge to home and was discharged to his home in stable condition on June 04, 2022.
== END 2022-06-04 13:02 | disposition home health service (06) ==
LOC: 3E 05:07 → ASU 05:07